=== PATIENT | female | born 1960 | race Two or more races ===

== ENCOUNTER 2018-09-03 01:14 | Emergency (ER) | payer OTHER ==
[~2018-09-03] VITALS: Ht 152.4 cm; Wt 71.7 kg
[2018-09-03] MEDS ORDERED: SYNTHROID50 MCG (01:32)
[2018-09-03] MEDS ORDERED: COZAAR50 MG (01:32)
[2018-09-03] MEDS ORDERED: SEROQUEL400 MG (01:33)
[2018-09-03] MEDS ORDERED: LAMICTAL200 M1 (01:33)
[2018-09-03] MEDS ORDERED: AMOX-CLAV 875-1 EACH PO (04:16)
== END 2018-09-03 04:23 | disposition home or self-care (01) ==
LOC: ER 01:14
DX: S60.571A Other superficial bite of hand of right hand, initial encounter (principal); W55.01XA Bitten by cat, initial encounter; Y93.89 Activity, other specified; Y92.89 Other specified places as the place of occurrence of the external cause; Y99.8 Other external cause status